=== PATIENT | male | born 1970 | race African-American/Black ===

== ENCOUNTER 2019-03-21 22:47 | Inpatient (IN) | payer SELFPAY ==
[~2019-03-21] VITALS: Ht 172.7 cm; Wt 109.8 kg
[2019-03-21] MEDS ORDERED: SODIUM CHLORIDE 0.9% 1,000 ML IV ONE (23:09)
[2019-03-21] MEDS ORDERED: ONDANSETRON HCL 4MG/2ML INJ IV STA (23:09)
[2019-03-21 23:41] LABS: BG BASE EXCESS 3.1 mmol/L (-2.0-2.0); BG CARBOXYHEMOGLOBIN 2.1 % (0.5-1.5); BG FRACTION INSPIRED OXYGEN 21; BG HCO3 ACT 27.3 mmol/L (22.0-26.0); BG METHEMOGLOBIN 0.1 % (0.0-1.5); BG OXYGEN SATURATION 91.8 % (92.0-98.5); BG OXYHEMOGLOBIN 89.8 % (94.0-97.0); BG PCO2 40.2 mmHg (35.0-45.0); BG PO2 63.5 mmHg (75.0-100.0); BG SAMPLE SITE RIGHT RADIAL; BG TOTAL HEMOGLOBIN 13.8 g/dL (12.0-18.0); BG VENT MODE ROOM AIR
[2019-03-21 23:49] LABS: BASOPHILS % 0.4 % (0.0-2.0); EOSINOPHILS % 0.7 % (0.0-5.0); HEMATOCRIT. 40.1 % (42.0-52.0); HEMOGLOBIN. 13.6 g/dL (14.0-18.0); LYMPHOCYTES % 14.7 % (20.0-50.0); MEAN CORPUSCULAR HEMOGLOBIN 30.4 pg (28.0-32.0); MEAN CORPUSCULAR VOLUME 89.7 fL (80.0-94.0); MEAN PLATELET VOLUME 10.5 fl (7.4-10.4); MONOCYTES % 6.8 % (2.0-8.0); NEUTROPHILS % 77.4 % (40.0-76.0); PLATELET 131 x1000/uL (130-400); RED BLOOD CELL COUNT 4.47 mill/uL (4.7-6.1); RED CELL DISTRIBUTION WIDTH 14.2 % (11.6-14.6)
[2019-03-21 23:54] LABS: CHLORIDE 104 mEq/L (98-107)
[2019-03-21 23:57] LABS: ETHANOL BLOOD < 10 mg/dL
[2019-03-22 00:01] LABS: CREATINE KINASE 973 IU/L (39-308)
[2019-03-22 00:33] LABS: *AMPHETAMINES SCREEN URINE NEGATIVE (NEGATIVE); *BARBITURATES SCREEN URINE NEGATIVE (NEGATIVE); *BENZODIAZEPINES SCREEN URINE NEGATIVE (NEGATIVE); *COCAINE SCREEN URINE NEGATIVE (NEGATIVE); CANNABINOID URINE SCREEN PRESUMTIVE POSITIVE (NEGATIVE); METHADONE URINE SCREEN NEGATIVE (NEGATIVE); OPIATES URINE SCREEN NEGATIVE (NEGATIVE); PHENCYCLIDINE URINE SCREEN PRESUMTIVE POSITIVE (NEGATIVE)
[2019-03-22] MEDS: DEXT 5%/0.45% NACL 1000ML 1,000 ML IV SCH ×2 (03:03→15:09)
[2019-03-22] MEDS ORDERED: ACETAMINOPHEN 650MG SUPP PR PRN (03:15)
[2019-03-22] MEDS ORDERED: DOCUSATE SODIUM 100MG CAPSULE PO PRN (03:15)
[2019-03-22] MEDS ORDERED: LORAZEPAM 2MG/ML CPJ IV PRN (03:15)
[2019-03-22] MEDS ORDERED: ONDANSETRON HCL 4MG/2ML INJ IV PRN (03:15)
[2019-03-22] MEDS ORDERED: IOHEXOL-350 100 ML BOTTLE ONE (03:55)
[2019-03-22 06:20] LABS: CREATINE KINASE 726 IU/L (39-308)
[2019-03-22 06:21] LABS: CREATINE KINASE MB FRACTION 3.9 ng/mL (0.5-3.6)
[2019-03-22 11:00] VITALS: BP 130/87
[2019-03-22] MEDS ORDERED: METF-414 PO (11:09)
[2019-03-22] MEDS ORDERED: CHOL100022 PO (11:09)
[2019-03-22] MEDS ORDERED: ATOR10TA69 PO (11:09)
[2019-03-22 11:14] VITALS: BP 130/87
[2019-03-22 15:39] VITALS: BP 130/87
[2019-03-22 15:43] LABS: CREATINE KINASE 529 IU/L (39-308); CREATINE KINASE MB FRACTION 2.8 ng/mL (0.5-3.6)
== END 2019-03-22 16:22 | disposition home or self-care (01) | DRG 48 ==
LOC: ER 22:47 → 8WST 03-22 02:24 → EDBEDREQ 03-22 02:25 → EDBEDREQTM 03-22 02:25 → SUPCPDRO 03-22 03:02 → ENRESERV 03-22 10:08
PROVIDERS: ADMIT Hospitalist; ATTEND Hospitalist
DX: G90.8 Other disorders of autonomic nervous system (principal); J96.01 Acute respiratory failure with hypoxia; G93.40 Encephalopathy, unspecified; F20.0 Paranoid schizophrenia; F12.10 Cannabis abuse, uncomplicated; F19.10 Other psychoactive substance abuse, uncomplicated
CPT/HCPCS: 36415; 36600; 71045; 71275; 80305; 80307; 80320; 80329; 82375; 82550; 82553; 82805; 84484; 93005; 93306; 93970; 96374; 99291; J2405; J7030; Q9967; G0480